=== PATIENT | male | born 1940 | race Caucasian/White ===

== ENCOUNTER 2021-11-30 01:38 | Emergency (ER) | payer MEDICARE, BC, SELFPAY ==
--- NOTE | ~2021-11-30 | CT_ITS ---
EXAMINATION: CT brain wo con DATE: 11/30/2021 02:09 INDICATION: Altered mental status. TECHNIQUE: Computed tomography (CT) of the head was performed without intravenous contrast. The mA wa s adjusted according to patient size. Iterative reconstruction technique was employed. The dose-lengt h product was 605.33 mGy-cm. COMPARISON: Head CT 11/14/2014 FINDINGS: There are scattered areas of low attenuation in the cerebral white matter and bilateral bas al ganglia. There is no intracranial hemorrhage, acute infarction, or abnormal intracranial mass lesi on. The ventricles are normal in size. There are likely changes of ocular lens replacement surgeries. There is mild mucosal thickening in the ethmoid sinuses. The mastoid air cells are normal. IMPRESSION: 1. Worsened mild nonspecific cerebral white matter disease and disease of the bilateral basal ganglia , which likely represents chronic small vessel ischemic disease. Reviewed, dictated and finalized at location A. IMPRESSION: 1. Worsened mild nonspecific cerebral white matter disease and disease of the b ilateral basal ganglia, which likely represents chronic small vessel ischemic d isease.
[2021-11-30 01:40] VITALS: BP 172/97; PULSE 83; RESP 19; TEMP 36.4; O2SAT 96
--- NOTE | 2021-11-30 01:50 | ECG_ITS ---
Measurements Intervals [place] Rate: 79 P: 51 NE: 182 QRS: 20 QRSD: 93 T: 8 QT: 387 QTc: 444 Interpretive Statements SINUS RHYTHM NORMAL ECG Electronically Signed On 11-30-2021 13:57:46 CDT by Ramiro Escoto M.D.
--- NOTE | 2021-11-30 01:54 | PC.NURSE ---
EDP at bedside, pt able to tell EDP date and month. Seizure precautions initiated.
[2021-11-30 01:57] VITALS: BP 166/87
--- NOTE | 2021-11-30 02:01 | ED.AMS ---
HPI - Altered Mental Status General Chief Complaint: Altered Mental Status Stated Complaint: ALTERED LOC Time Seen by Provider: 11/30/21 01:50 History of Present Illness HPI narrative: Patient is an 81-year-old male brought in by EMS due to he was difficult to wake up according to . EMS states that he was able to stand up and walk when they arrived. Upon arrival to the emergency room he is alert and oriented x3, does not know why his called EMS, states that he was sleeping. Patient has no complaints at this time I feel fine . Denies any headache, dizziness, speech or visual disturbance, focal weakness or numbness, unsteady gait, chest pain, shortness of breath, abdominal pain, nausea, vomiting, diarrhea, urinary symptoms, fever or chills. Related Data Home Medications Medication Instructions Recorded Confirmed aspirin 81 mg tablet,delayed 81 mg PO DAILY 01/01/20 07/14/21 release dutasteride 0.5 mg capsule 0.5 mg PO DAILY 01/01/20 07/14/21 (Avodart) lorazepam 0.5 mg tablet 0.5 mg PO DAILY PRN 01/01/20 07/14/21 Allergies Allergy/AdvReac Type Severity Reaction Status Date / Time fluoxetine Allergy Mild ELEVATED BP Verified 11/30/21 01:47 Penicillins Allergy Mild RASH Verified 11/30/21 01:47 Sulfa (Sulfonamide Allergy Mild RASH Verified 11/30/21 01:47 Antibiotics) citric acid Allergy Unknown Unknown Verified 11/30/21 01:47 losartan Allergy Unknown side Verified 11/30/21 01:47 effects strawberry Allergy Unknown Rash Verified 11/30/21 01:47 sulfanilamide Allergy Unknown Unknown Verified 11/30/21 01:47 lisinopril AdvReac Mild UNKNOWN Verified 11/30/21 01:47 Review of Systems Review of Systems: All systems reviewed & are unremarkable except as noted in HPI and below Constitutional: Constitutional: Denies body ache(s), Denies chills, Denies excessive sweating, Denies fatigue, Denies fever(s), Denies headache(s), Denies lethargy, Denies malaise, Denies weakness and Denies weight loss Eyes: Eyes: Denies blurry vision, Denies change in vision and Denies loss of vision ENT: Denies dizziness, Denies ear discharge, Denies headache(s), Denies lip swelling, Denies epistaxis, Denies nasal congestion, Denies neck pain, Denies throat swelling and Denies tongue swelling Cardiovascular: Cardiovascular: Denies chest pain, Denies chest pain at rest, Denies chest pain with activity, Denies diaphoresis, Denies rapid heart rate, Denies edema, Denies irregular heart rhythm, Denies lightheadedness, Denies palpitations, Denies dyspnea and Denies dyspnea on exertion Respiratory: Respiratory: Denies chest congestion, Denies cough, Denies hemoptysis, Denies dyspnea and Denies dyspnea on exertion Gastrointestinal: Gastrointestinal: Denies abdominal pain, Denies melena, Denies hematochezia, Denies diarrhea, Denies nausea, Denies vomiting and Denies hematemesis Musculoskeletal: Musculoskeletal: Denies abnormal gait, Denies deformity, Denies joint swelling, Denies limited range of motion, Denies neck pain and Denies numbness Neurologic: Denies Abnormal speech present, Denies abnormal gait, Denies confusion, Denies dizziness, Denies headache(s), Denies focal weakness, Denies loss of vision, Denies numbness, Denies Other visual disturbances, Denies Sensory deficit (Neuro) and Denies weakness Psychiatric: Psychiatric: Denies confusion, Denies depression, Denies auditory hallucinations, Denies homicidal ideation and Denies suicidal ideation Endocrine: Endocrine: Denies cold intolerance, Denies excessive sweating, Denies fatigue, Denies heat intolerance and Denies palpitations Hematologic/Lymphatic: Hematologic/Lymphatic: Denies easy bleeding and Denies easy bruising Allergic/Immunologic: Allergic/Immunologic: Denies lip swelling, Denies throat swelling and Denies tongue swelling PMFSH Family History Family History Father Hypertension Family history of diabetes mellitus in first de
[2021-11-30 02:21] LABS: Add Urine Microscopic? YES; Appearance Urine Clear (Clear); Basophils Absolute Auto 0.1 K/mm3 (0.0-0.1); Basophils Percent Auto 0.8 % (0.2-1.2); Bilirubin Urine Negative (Negative); Blood Urine Trace-lysed (Negative); Color Urine Yellow (Yellow); Eosinophils Absolute Auto 0.2 K/mm3 (0-0.3); Eosinophils Percent Auto 3.2 % (0-4.4); Glucose Urine UA Negative (Negative); Hematocrit 40.9 % (42.0-52.0); Hemoglobin 13.6 g/dL (14.0-18.0); Immature Granulocyte Percent A 1.4 % (0-0.5); Ketones Urine Negative (Negative); Leukocyte Esterase Ur Negative LEU/UL (Negative); Lymphocytes Absolute Auto 2.21 K/mm3 (0.9-3.2); Lymphocytes Percent Auto 30.5 % (18.3-44.2); Mean Corpuscular HGB Conc 33.3 g/dl (32-36); Mean Corpuscular Hemoglobin 28.9 pg (26-34); Mean Corpuscular Volume 86.8 fl (80-100); Mean Platelet Volume 8.7 fl (7.4-10.4); Monocytes Absolute Auto 0.4 K/mm3 (0.1-0.6); Monocytes Percent Auto 5.4 % (2.6-8.5); Neutrophils Absolute Auto 4.3 K/mm3 (1.3-6.7); Neutrophils Percent Auto 58.7 % (45.5-73.1); Nitrate Urine Negative (Negative); Platelet Count Result 166 k/mm3 (150-375); Protein Urine 1+ mg/dL (Negative); Red Blood Count 4.71 M/mm3 (4.6-6.20); Red Cell Distribution Width 12.2 % (11.5-14.5); Specific Grav Ur 1.025 (1.001-1.035); Urobilinogen Urine 0.2 mg/dL (<2.0); White Blood Count 7.3 K/mm3 (4.5-10.0); pH Urine 5.5 (5.0-9.0)
[2021-11-30 02:24] LABS: Mucus Urine Rare /lpf; RBC Urine 0-2 /hpf (0-2)
--- NOTE | 2021-11-30 02:29 | PC.NURSE ---
Spouse at bedside reports she was woken up by pt shaking, with no verbal response, and eyes half open . Reports it sounded like he was snoring. Unsure of how long this episode lasted.
[2021-11-30 02:31] LABS: Alanine Aminotransferase 26 U/L (6-50); Alkaline Phosphatase 48 U/L (38-126); Anion Gap 8 mmol/L (8-16); Aspartate Amino Transferase 32 U/L (17-59); Bilirubin,Total 0.4 mg/dL (0.2-1.3); Blood Urea Nitrogen 16 mg/dL (9-20); Calcium 9.2 mg/dL (8.4-10.2); Carbon Dioxide 26 mmol/L (22-30); Chloride 104 mmol/L (98-107); Estimated CRCL calculation 57 ml/min; Estimated Glomerular Filt Rate > 60; Glucose 143 mg/dL (65-110); Potassium 3.8 mmol/L (3.4-5.0); Sodium 138 mmol/L (137-145)
[2021-11-30 02:42] LABS: Troponin I < 0.012 ng/mL (0.000-0.034)
[2021-11-30 03:07] VITALS: BP 161/90; PULSE 77; RESP 15; O2SAT 96
== END 2021-11-30 03:09 | disposition home or self-care (01) ==
PROVIDERS: Emergency Provider Emergency Medicine; PCP Family Medicine
DX: R41.82 Altered mental status, unspecified (principal); Z87.891 Personal history of nicotine dependence; Z79.82 Long term (current) use of aspirin
CPT/HCPCS: 36415; 70450; 80053; 81001; 84484; 85025; 93005; 99284

== ENCOUNTER 2021-12-18 10:40 | Outpatient (CLI) | payer MEDICARE, BC, SELFPAY ==
--- NOTE | 2021-12-18 12:49 | P.NEURO_ITS ---
Neurology EEG Report General Information Date of Study: 12/18/21 TEST Routine EEG DIAGNOSIS Altered mental status CONDITION OF RECORDING Awake, drowsy EEG NUMBER [id number] CLINICAL HISTORY Patient reports about 2 weeks ago he had an episode of waking up shaking uncontrollably. EEG DESCRIPTION During the awake state with eyes closed the background consists of 10 Hz posterior dominant rhythm which attenuates appropriately with eye opening. The r ecording is continuous. There is a well developed anterior-posterior gradient. No significant asymmetries of background activities are noted. With drowsiness there is was waxing and waning of the dominant rhythm with eventual replacement by a mixture of beta, alpha, and theta activity. Patient did not achieve stage II sleep. There are no epileptiform discharges or seizures noted during this recording. Photic stimulation was performed and did not elicit any seizures or epileptiform features. IMPRESSION This is a normal routine EEG recorded in awake and drowsy states. There are no electrographic seizures identified, nor are there any epileptiform discharges. Please note that a normal EEG cannot exclude a seizure disorder. Clinical correlation is recommended.
== END 2021-12-18 10:41 | disposition home or self-care (01) ==
LOC: ANHNEURO 10:41
PROVIDERS: PCP Family Medicine; Visit Provider Physician Assistant
DX: R41.82 Altered mental status, unspecified (principal)
CPT/HCPCS: 95816

== ENCOUNTER 2022-01-07 10:28 | Outpatient (CLI) | payer MEDICARE, BC, SELFPAY ==
--- NOTE | ~2022-01-07 | MR_ITS ---
EXAMINATION: MR brain/brain stem wo con DATE: 01/07/2022 11:08 INDICATION: Seizure. TECHNIQUE: Magnetic resonance imaging (MRI) of the brain and brainstem was performed without intraven ous contrast. COMPARISON: Head CT 11/30/2021 FINDINGS: There are scattered areas of nonspecific increased T2-weighted signal intensity in the cere bral white matter and aranza. There is a small old cortical infarct in posterior right frontal lobe. Th ere is no intracranial hemorrhage, acute infarction, or abnormal intracranial mass lesion. The ventri cles are normal in size. There is mild mucosal thickening in the ethmoid sinuses. There are likely ch anges of ocular lens replacement surgeries. The mastoid air cells are normal. IMPRESSION: 1. 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 2. Mild nonspecific cerebral white matter disease and pontine disease, which likely represents chroni c small vessel ischemic disease. Reviewed, dictated and finalized at location A. IMPRESSION: 1. 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 2. Mild nonspecific cerebral white matter disease and pontine disease, which marilyn thornton represents chronic small vessel ischemic disease.
== END 2022-01-07 10:29 | disposition home or self-care (01) ==
PROVIDERS: PCP Family Medicine; Visit Provider Physician Assistant
DX: R56.9 Unspecified convulsions (principal); R41.82 Altered mental status, unspecified; Z86.73 Personal history of transient ischemic attack (TIA), and cerebral infarction without residual deficits; R90.82 White matter disease, unspecified
CPT/HCPCS: 70551

== ENCOUNTER 2022-04-25 00:35 | Emergency (ER) | payer MEDICARE, BC, SELFPAY ==
[2022-04-25] VITALS (13 sets, daily range): BP systolic 162–183; BP diastolic 75–84; PULSE 52–91; RESP 12–24; TEMP 37.1; O2SAT 96–100
--- NOTE | ~2022-04-25 | CT_ITS ---
EXAMINATION: CT brain wo con DATE: 04/25/2022 02:49 INDICATION: seizure, hx TIA . TECHNIQUE: Computed tomography (CT) of the head was performed without intravenous contrast. The mA wa s adjusted according to patient size. Iterative reconstruction technique was employed. The dose-lengt h product was 605.33 mGy-cm. COMPARISON: 11/30/2021. FINDINGS: No acute intracranial hemorrhage or extra-axial fluid collection. No hydrocephalus, mass, or herniation. No acute ischemic infarct. Unremarkable dural venous sinus attenuation. No acute osseous abnormality. The aerated spaces are clear. Mild atrophy and chronic white matter change. Atherosclerotic intracranial calcification. Old right b adele ganglia and periventricular lacunar infarcts. Bilateral lens replacements. IMPRESSION: No acute intracranial process. Reviewed, dictated and finalized at location K. [facility]
--- NOTE | 2022-04-25 01:46 | ED.GENADULT ---
HPI - General Adult General Chief complaint: Seizure Stated complaint: POSSIBLE SEIZURE Time Seen by Provider: 04/25/22 01:15 History of Present Illness HPI narrative: 82-year-old male presenting the emergency department for evaluation of seizure-like activity that occurred while sleeping. Patient reports that he went to sleep at approximately 1130 and he was feeling fine when going to sleep. Patient denies anything abnormal about the day. states after the patient was asleep for approximately 30 minutes he began doing some lipsmacking and had a rigid right arm. His states that the patient was unresponsive for approximately 30 minutes. Patient did have a prior episode of this back in November where he did have violent shaking of his upper extremities but states he did not had any upper extremity shaking during this episode today. Patient did bite his tongue and left today. Patient did have follow-up with neurology for an EEG and MRI. EEG in November showed no evidence of epileptic activity. Patient was not started on any antiepileptic medications. Patient reports that when he woke up in the ambulance he did not feel confused. Patient is back to his normal baseline at this time and denies any complaints other than feeling tired. Related Data Home Medications Medication Instructions Recorded Confirmed aspirin 81 mg tablet,delayed 81 mg PO DAILY 01/01/20 01/13/22 release dutasteride 0.5 mg capsule 0.5 mg PO DAILY 01/01/20 01/13/22 (Avodart) lorazepam 0.5 mg tablet 0.5 mg PO BID PRN 12/03/21 01/13/22 Allergies Allergy/AdvReac Type Severity Reaction Status Date / Time fluoxetine Allergy Mild ELEVATED BP Verified 01/13/22 13:00 Penicillins Allergy Mild RASH Verified 01/13/22 13:00 Sulfa (Sulfonamide Allergy Mild RASH Verified 01/13/22 13:00 Antibiotics) citric acid Allergy Unknown Unknown Verified 01/13/22 13:00 losartan Allergy Unknown side Verified 01/13/22 13:00 effects strawberry Allergy Unknown Rash Verified 01/13/22 13:00 sulfanilamide Allergy Unknown Unknown Verified 01/13/22 13:00 lisinopril AdvReac Mild UNKNOWN Verified 01/13/22 13:00 Review of Systems Review of Systems: CONSTITUTIONAL: Denies fever, chills, or sweats. EYES: Denies visual changes, redness, or discharge. ENT: See HPI CARDIOVASCULAR: Denies chest pain, palpitations, or edema. RESPIRATORY: Denies cough or dyspnea. GASTROINTESTINAL: Denies abdominal pain, nausea, vomiting, or diarrhea. GENITOURINARY: Denies dysuria or hematuria. SKIN: Denies rash or itching. MUSCULOSKELETAL: Denies back pain, joint pain, or myalgia. NEUROLOGIC: Possible seizure-like activity [facility] Family History Family History Father Hypertension Family history of diabetes mellitus in first degree relative Family history of coronary artery disease Mother Family history of chronic obstructive pulmonary disease Sibling Family history of malignant neoplasm Family history of lymphoma Family history of malignant neoplasm of breast in first degree relative Social History Social History Smoking packs per day: 1 Smoking cigarettes per day: 20.0 Years smoked: 43 Smoking pack-years: 43.00 Smoking status: Former smoker Tobacco type: cigarettes and pipe Second hand tobacco smoke exposure: Yes Smoking end date: 05/02/74 Alcohol intake: never Substance use: never Substance use type: does not use Gender identity (if verbalized by the patient): Male Exam Narrative: APPEARANCE: Well appearing, no pain, no distress, well-nourished. HEAD: normocephalic, atraumatic. EYES: PERRLA/EOMI, conjunctivae clear. NOSE: Normal no drainage EARS:TMS clear with good light reflex. THROAT: Pharynx clear, no exudate. NECK: Supple. No adenopathy, no masses. RESPIRATORY: Airway patent, respirations nonlabored. Clear to auscultation bilaterally, no
[2022-04-25] MEDS: CALCIUM CARBONATE (TUMS) 500 MG (200 MG ELEMENTAL) 600 MG PO (01:59)
--- NOTE | 2022-04-25 03:30 | PC.NURSE ---
Assumed care of patient at this time. Report received from NAS Alvarado.
[2022-04-25 03:55] LABS: Basophils Absolute Auto 0.1 K/mm3 (0.0-0.1); Basophils Percent Auto 0.8 % (0.2-1.2); Eosinophils Absolute Auto 0.1 K/mm3 (0-0.3); Eosinophils Percent Auto 1.4 % (0-4.4); Hematocrit 40.7 % (42.0-52.0); Hemoglobin 13.8 g/dL (14.0-18.0); Immature Granulocyte Absolute 0.04 K/mm3 (0.00-0.031); Immature Granulocyte Percent A 0.4 % (0-0.5); Lymphocytes Absolute Auto 1.39 K/mm3 (0.9-3.2); Lymphocytes Percent Auto 15.1 % (18.3-44.2); Mean Corpuscular HGB Conc 33.9 g/dl (32-36); Mean Corpuscular Hemoglobin 28.4 pg (26-34); Mean Corpuscular Volume 83.7 fl (80-100); Mean Platelet Volume 9.1 fl (7.4-10.4); Monocytes Absolute Auto 0.5 K/mm3 (0.1-0.6); Monocytes Percent Auto 5.2 % (2.6-8.5); Neutrophils Absolute Auto 7.1 K/mm3 (1.3-6.7); Neutrophils Percent Auto 77.1 % (45.5-73.1); Platelet Count Result 163 k/mm3 (150-375); Red Blood Count 4.86 M/mm3 (4.6-6.20); Red Cell Distribution Width 12.3 % (11.5-14.5); White Blood Count 9.2 K/mm3 (4.5-10.0)
[2022-04-25 04:04] LABS: Add Urine Microscopic? YES; Appearance Urine Clear (Clear); Bilirubin Urine Negative (Negative); Blood Urine Negative (Negative); Color Urine Light Yellow (Yellow); Glucose Urine UA Negative (Negative); Ketones Urine Negative (Negative); Leukocyte Esterase Ur Negative LEU/UL (Negative); Nitrate Urine Negative (Negative); Protein Urine Trace mg/dL (Negative); Urobilinogen Urine 0.2 mg/dL (<2.0); pH Urine 6.5 (5.0-9.0)
[2022-04-25 04:05] LABS: Alanine Aminotransferase 33 U/L (6-50); Albumin Level 4.1 g/dL (3.5-5.1); Alkaline Phosphatase 54 U/L (38-126); Anion Gap 7 mmol/L (8-16); Aspartate Amino Transferase 40 U/L (17-59); Bilirubin,Total 0.3 mg/dL (0.2-1.3); Blood Urea Nitrogen 18 mg/dL (9-20); Calcium 9.8 mg/dL (8.4-10.2); Carbon Dioxide 27 mmol/L (22-30); Chloride 105 mmol/L (98-107); Estimated CRCL calculation 58 ml/min; Estimated Glomerular Filt Rate > 60; Glucose 106 mg/dL (65-110); Potassium 3.9 mmol/L (3.4-5.0); Sodium 139 mmol/L (137-145)
[2022-04-25 04:14] LABS: Mucus Urine Rare /lpf; RBC Urine 0-2 /hpf (0-2)
[2022-04-25 04:30] LABS: Influenza A QL RT-PCR Negative (Negative); Influenza B QL RT-PCR Negative (Negative); RSV RNA, RT-PCR Negative (Negative); SARS-CoV-2 RNA PCR Negative
[2022-04-25] MEDS: levETIRAcetam 500 MG TABLET PO (06:14)
== END 2022-04-26 07:54 | disposition home or self-care (01) ==
PROVIDERS: Emergency Provider Emergency Medicine; PCP Family Medicine
DX: R56.9 Unspecified convulsions (principal); Z79.82 Long term (current) use of aspirin; Z87.891 Personal history of nicotine dependence; Z79.899 Other long term (current) drug therapy; Z20.822 Contact with and (suspected) exposure to COVID-19
CPT/HCPCS: 36415; 70450; 80053; 81001; 84443; 85025; 87637; 99284; A9270

== ENCOUNTER 2022-07-08 08:39 | Outpatient (CLI) | payer MEDICARE, BC, SELFPAY ==
[2022-07-08 09:08] LABS: Basophils Absolute Auto 0.1 K/mm3 (0.0-0.1); Basophils Percent Auto 0.9 % (0.2-1.2); Eosinophils Absolute Auto 0.3 K/mm3 (0-0.3); Eosinophils Percent Auto 4.6 % (0-4.4); Hematocrit 44.8 % (42.0-52.0); Immature Granulocyte Absolute 0.02 K/mm3 (0.00-0.031); Immature Granulocyte Percent A 0.4 % (0-0.5); Lymphocytes Percent Auto 33.3 % (18.3-44.2); Mean Corpuscular HGB Conc 33.5 g/dl (32-36); Mean Corpuscular Volume 86.7 fl (80-100); Mean Platelet Volume 8.9 fl (7.4-10.4); Monocytes Absolute Auto 0.4 K/mm3 (0.1-0.6); Monocytes Percent Auto 7.2 % (2.6-8.5); Neutrophils Absolute Auto 3.1 K/mm3 (1.3-6.7); Neutrophils Percent Auto 53.6 % (45.5-73.1); Platelet Count Result 158 k/mm3 (150-375); Red Blood Count 5.17 M/mm3 (4.6-6.20); Red Cell Distribution Width 12.5 % (11.5-14.5); White Blood Count 5.7 K/mm3 (4.5-10.0)
[2022-07-08 09:23] LABS: Alanine Aminotransferase 33 U/L (6-50); Albumin Level 4.4 g/dL (3.5-5.1); Alkaline Phosphatase 56 U/L (38-126); Anion Gap 5 mmol/L (8-16); Aspartate Amino Transferase 36 U/L (17-59); Bilirubin,Total 0.6 mg/dL (0.2-1.3); Blood Urea Nitrogen 16 mg/dL (9-20); Calcium 9.1 mg/dL (8.4-10.2); Carbon Dioxide 28 mmol/L (22-30); Chloride 106 mmol/L (98-107); Cholesterol 235 mg/dL (0-200); Estimated Glomerular Filt Rate > 60; Glucose 93 mg/dL (65-110); HDL Direct 41 mg/dL; Sodium 139 mmol/L (137-145); Triglycerides 354 mg/dL (<150)
[2022-07-08 09:23] LABS: Appearance Urine Clear (Clear); Bacteria Urine None Seen /hpf; Bilirubin Urine Negative (Negative); Blood Urine Negative (Negative); Color Urine Yellow (Yellow); Glucose Urine UA Negative (Negative); Ketones Urine Negative (Negative); Leukocyte Esterase Ur 1+ LEU/UL (NEGATIVE); Need Manual Microscopic Reviewed; Nitrate Urine Negative (Negative); Non Pathogenic Casts 0-2; Protein Urine 1+ mg/dL (Negative); RBC Urine 0-2 /hpf (0-2); Specific Grav Ur 1.013 (1.001-1.035); Squamous Epithelial Cell Urine None seen /hpf (Few); Urobilinogen Urine 0.2 mg/dL (<2.0); WBC Urine 0-5 /hpf (0-3); pH Urine 6.5 (5.0-9.0)
[2022-07-08 09:34] LABS: LDL Cholesterol Direct 96 mg/dL
[2022-07-08 10:12] LABS: Add Urine Microscopic? YES
[2022-07-08 10:33] LABS: Folic Acid > 20.0 ng/mL (2.76->20)
== END 2022-07-08 08:40 | disposition home or self-care (01) ==
LOC: ANHLAB 08:42
PROVIDERS: PCP Family Medicine; Visit Provider Physician Assistant
DX: I10 Essential (primary) hypertension (principal); E53.8 Deficiency of other specified B group vitamins; E78.2 Mixed hyperlipidemia; N40.0 Benign prostatic hyperplasia without lower urinary tract symptoms; K21.9 Gastro-esophageal reflux disease without esophagitis; G45.9 Transient cerebral ischemic attack, unspecified
CPT/HCPCS: 36415; 80053; 80061; 81001; 82607; 82746; 84443; 85025

== ENCOUNTER 2023-01-27 07:45 | Outpatient (CLI) | payer MEDICARE, BC, SELFPAY ==
[2023-01-27 08:21] LABS: Hematocrit 43.1 % (42.0-52.0); Hemoglobin 14.4 g/dL (14.0-18.0); Mean Corpuscular HGB Conc 33.4 g/dl (32-36); Mean Corpuscular Hemoglobin 29.3 pg (26-34); Mean Corpuscular Volume 87.6 fl (80-100); Mean Platelet Volume 9.1 fl (7.4-10.4); Platelet Count Result 146 k/mm3 (150-375); Red Blood Count 4.92 M/mm3 (4.6-6.20); Red Cell Distribution Width 12.1 % (11.5-14.5); White Blood Count 5.8 K/mm3 (4.5-10.0)
[2023-01-27 08:25] LABS: Appearance Urine Clear (Clear); Bacteria Urine None Seen /hpf; Bilirubin Urine Negative (Negative); Blood Urine Negative (Negative); Color Urine Yellow (Yellow); Glucose Urine UA Negative (Negative); Ketones Urine Negative (Negative); Leukocyte Esterase Ur Trace LEU/UL (NEGATIVE); Nitrate Urine Negative (Negative); Non Pathogenic Casts 0-2; Protein Urine Negative (Negative); RBC Urine 0-2 /hpf (0-2); Specific Grav Ur 1.013 (1.001-1.035); Squamous Epithelial Cell Urine None seen /hpf (Few); Urobilinogen Urine 0.2 mg/dL (<2.0); WBC Urine 0-5 /hpf (0-3)
[2023-01-27 08:38] LABS: Add Urine Microscopic? YES
[2023-01-27 09:36] LABS: Hemoglobin A1C 5.3 % (<5.7)
[2023-01-27 09:44] LABS: Alanine Aminotransferase 31 U/L (6-50); Albumin Level 4.3 g/dL (3.5-5.1); Alkaline Phosphatase 42 U/L (38-126); Anion Gap 6 mmol/L (8-16); Aspartate Amino Transferase 37 U/L (17-59); Bilirubin,Total 0.7 mg/dL (0.2-1.3); Blood Urea Nitrogen 18 mg/dL (9-20); Calcium 9.3 mg/dL (8.4-10.2); Carbon Dioxide 28 mmol/L (22-30); Chloride 104 mmol/L (98-107); Cholesterol 191 mg/dL (0-200); Estimated Glomerular Filt Rate > 60; Glucose 93 mg/dL (65-110); HDL Direct 39 mg/dL; Potassium 3.9 mmol/L (3.4-5.0); Sodium 138 mmol/L (137-145); Triglycerides 358 mg/dL (<150)
[2023-01-27 10:00] LABS: LDL Cholesterol Direct 64 mg/dL
[2023-01-27 10:57] LABS: Folic Acid > 20.0 ng/mL (2.76->20)
== END 2023-01-27 07:46 | disposition home or self-care (01) ==
LOC: ANHLAB 07:47
PROVIDERS: PCP Family Medicine; Visit Provider Family Medicine
DX: E53.8 Deficiency of other specified B group vitamins (principal); G45.9 Transient cerebral ischemic attack, unspecified; I10 Essential (primary) hypertension; E78.2 Mixed hyperlipidemia; R53.83 Other fatigue; R73.01 Impaired fasting glucose
CPT/HCPCS: 36415; 80053; 80061; 81001; 82607; 82746; 83036; 84443; 85027

== ENCOUNTER 2023-03-20 13:50 | Observation (INO) | payer MEDICARE, BC, SELFPAY ==
[2023-03-20] VITALS (25 sets, daily range): BP systolic 108–156; BP diastolic 46–86; PULSE 57–91; RESP 13–18; TEMP 36.4; O2SAT 97–100; BMI 21.2
--- NOTE | ~2023-03-20 | CT_ITS ---
EXAMINATION: CT brain wo con DATE: 03/20/2023 18:03 INDICATION: seizure . TECHNIQUE: Computed tomography (CT) of the head was performed without intravenous contrast. The mA wa s adjusted according to patient size. Iterative reconstruction technique was employed. The dose-lengt h product was 605.33 mGy-cm. COMPARISON: 04/25/2022. FINDINGS: No acute intracranial hemorrhage or extra-axial fluid collection. No hydrocephalus, mass, or herniation. No acute ischemic infarct. Unremarkable dural venous sinus attenuation. No acute osseous abnormality. The aerated spaces are clear. Mild atrophy and chronic white matter change. Atherosclerotic intracranial calcification. Old right b adele ganglia and periventricular lacunar infarcts. Bilateral lens replacements. IMPRESSION: No acute intracranial process. Reviewed, dictated and finalized at location K. [employer]
--- NOTE | ~2023-03-20 | MR_ITS ---
EXAMINATION: MR brain/brain stem wo con DATE: 03/21/2023 15:35 INDICATION: New onset seizure TECHNIQUE: Magnetic resonance imaging (MRI) of the brain and brainstem was performed without intraven ous contrast. Sequences included sagittal and axial T1-weighted SE, axial diffusion-weighted FS SE, a xial T2*-weighted GRE, axial T2-weighted FLAIR, and axial T2-weighted FSE. Apparent diffusion coeffic ient (ADC) maps were created. COMPARISON: 01/07/2022 FINDINGS: There are no areas of restricted diffusion to suggest acute infarction. No intracranial hemorrhage or abnormal intracranial mass lesion. No significant interval change in scattered areas of nonspecific increased T2-weighted signal intensity in the cerebral white matter, predominantly involving the deep and periventricular white matter which is within normal limits for age. There are no intraparenchyma l signal abnormalities seen on the other pulse sequences. The ventricles are symmetric and normal in size. There are no abnormal extra-axial fluid collections. Flow voids are seen in the cerebral arteri es on the T2-weighted sequences consistent with their expected patency. Changes of bilateral intraocu lar lens replacement. Visualized orbits and soft tissues are unremarkable. Mucosal thickening in the bilateral ethmoid sinuses most prominent posteriorly on the left. IMPRESSION: 1. 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 Reviewed, dictated and finalized at location [facility]. [facility] IMPRESSION: 1. Mild scattered nonspecific cerebral white matter T2 hyperintensity which is within normal limits for age and likely sequela of chronic small vessel ischemi c disease.
--- NOTE | 2023-03-20 13:55 | ECG_ITS ---
Measurements Intervals [place] Rate: 84 P: 51 OR: 164 QRS: 44 QRSD: 94 T: 51 QT: 372 QTc: 440 Interpretive Statements SINUS RHYTHM BASELINE ARTIFACT- I, II, AVR NORMAL ECG COMPARED TO ECG 11/30/2021 01:59:32 NO SIGNIFICANT CHANGES Electronically Signed On 03-20-2023 14:31:59 HOSPICE CARE TRANSITIONS COORDINATOR by Ramin Miranda D.O.
--- NOTE | 2023-03-20 13:59 | ED.AMS ---
HPI - Altered Mental Status General Chief Complaint: Altered Mental Status Stated Complaint: ams- combative Time Seen by Provider: 03/20/23 13:56 Source: patient, family ( and son) and EMS (heard phone report/arrival notification) Mode of arrival: EMS Limitations: no limitations History of Present Illness HPI narrative: reports she heard what sounded like patient gurgling in the adjacent room. When she came into the living room, he was partially on and partially off the couch. No seizure-like activity witnessed but his eyes were superiorly deviated and he was not responding to verbal stimuli. His arms were limp when she lifted them up and let them fall. She called 911 and patient's son who was only 5 minutes away. He arrived to find similar scenario. Patient had been incontinent of bladder and had bit his lower right lip. Patient remained unresponsive for several minutes and then, upon awakening, was confused for approximately 15-20 minutes after. It is reported by patient and family that he appears back to baseline at present. Patient has no memory of this occurring. He remembers laying down on the couch but then remembers waking up on the ambulance confused. By report, at least 2 similar episodes have happened previously. It was felt that perhaps patient was having seizures but he underwent an EEG which was by report normal, not showing any seizure activity. Thus, patient not placed on an anti-epileptic drug. 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 He has also reportedly had several TIAs. No family history of seizures. His previous 2 episodes occurred also while he was sleeping and, for his obstructive sleep apnea, he has been placed on CPAP. Previously saw a neurologist at [facility] but does not follow with anyone currently. He is on lorazepam which had been taken TID, then switched to BID, and then back to BID but this dose has been stable for months. This occurs under the direction of mariah Ruiz at [facility]. No changes in sleep, denies alcohol, and no medication changes. He states he works out and did increase his repetitions recently. Patient states he feels a little nauseated and has a bit of a headache (which he believes are due to allergies) but no other symptoms. He has otherwise been well and at his baseline recently. Denies chest pain, abdominal pain, BRENNA, cough, diarrhea. diaphoresis. He ate breakfast and lunch today. Related Data Home Medications Medication Instructions Recorded Confirmed aspirin 81 mg tablet,delayed 81 mg PO DAILY 01/01/20 03/20/23 release dutasteride 0.5 mg capsule 0.5 mg PO DAILY 01/01/20 03/20/23 (Avodart) lorazepam 0.5 mg tablet 0.5 mg PO TID 12/03/21 03/20/23 clonidine HCl 0.1 mg PO 1700 03/20/23 03/20/23 Allergies Allergy/AdvReac Type Severity Reaction Status Date / Time fluoxetine Allergy Mild ELEVATED BP Verified 03/20/23 21:06 Penicillins Allergy Mild RASH Verified 03/20/23 21:06 Sulfa (Sulfonamide Allergy Mild RASH Verified 03/20/23 21:06 Antibiotics) citric acid Allergy Unknown Unknown Verified 03/20/23 21:06 losartan Allergy Unknown side Verified 03/20/23 21:06 effects strawberry Allergy Unknown Rash Verified 03/20/23 21:06 sulfanilamide Allergy Unknown Unknown Verified 03/20/23 21:06 lisinopril AdvReac Mild UNKNOWN Verified 03/20/23 21:06 [facility] Past Medical History Medical History (Updated 03/21/23 @ 08:26 by Le Nloen MD) B12 deficiency Benign prostatic hyperplasia without lower urinary tract symptoms Essential hypertension Gastroesophageal reflux disease without esophagitis HSV-2 infection Lumbago with sciatica, right side Mixed hyperlipidemia FILOMENA (obstructive sleep apnea) uses CPAP Transient cerebral ischemic attack, unspecified Surgical History Surgical History History of tonsillectomy Family History Family History (Reviewed 03/20/23
[2023-03-20 14:09] LABS: Basophils Absolute Auto 0.1 K/mm3 (0.0-0.1); Basophils Percent Auto 1.2 % (0.2-1.2); Eosinophils Absolute Auto 0.3 K/mm3 (0-0.3); Eosinophils Percent Auto 4.6 % (0-4.4); Hematocrit 42.7 % (42.0-52.0); Hemoglobin 13.9 g/dL (14.0-18.0); Immature Granulocyte Absolute 0.03 K/mm3 (0.00-0.031); Immature Granulocyte Percent A 0.4 % (0-0.5); Lymphocytes Absolute Auto 3.18 K/mm3 (0.9-3.2); Lymphocytes Percent Auto 43.1 % (18.3-44.2); Mean Corpuscular HGB Conc 32.6 g/dl (32-36); Mean Corpuscular Hemoglobin 28.9 pg (26-34); Mean Corpuscular Volume 88.8 fl (80-100); Mean Platelet Volume 9.4 fl (7.4-10.4); Monocytes Absolute Auto 0.5 K/mm3 (0.1-0.6); Monocytes Percent Auto 6.1 % (2.6-8.5); Neutrophils Absolute Auto 3.3 K/mm3 (1.3-6.7); Neutrophils Percent Auto 44.6 % (45.5-73.1); Platelet Count Result 168 k/mm3 (150-375); Red Blood Count 4.81 M/mm3 (4.6-6.20); Red Cell Distribution Width 12.3 % (11.5-14.5); White Blood Count 7.4 K/mm3 (4.5-10.0)
[2023-03-20 14:16] LABS: INR 0.9; Prothrombin Time 12.3 Seconds (11.1-14.7)
[2023-03-20 14:17] LABS: Partial Thromboplastin Time 24.1 SECONDS (22.3-36.8)
[2023-03-20 14:20] LABS: Alanine Aminotransferase 35 U/L (6-50); Albumin Level 4.4 g/dL (3.5-5.1); Alkaline Phosphatase 46 U/L (38-126); Anion Gap 14 mmol/L (8-16); Aspartate Amino Transferase 39 U/L (17-59); Bilirubin,Total 0.4 mg/dL (0.2-1.3); Blood Urea Nitrogen 17 mg/dL (9-20); Calcium 9.5 mg/dL (8.4-10.2); Carbon Dioxide 25 mmol/L (22-30); Chloride 101 mmol/L (98-107); Estimated CRCL calculation 49 ml/min; Estimated Glomerular Filt Rate > 60; Glucose 112 mg/dL (65-110); Potassium 3.9 mmol/L (3.4-5.0); Sodium 140 mmol/L (137-145)
[2023-03-20 14:21] LABS: Appearance Urine Cloudy (Clear); Bacteria Urine None Seen /hpf; Bilirubin Urine Negative (Negative); Blood Urine Negative (Negative); Color Urine Dark Yellow (Yellow); Glucose Urine UA Negative (Negative); Hyaline Casts Urine Present /lpf; Ketones Urine Trace mg/dL (Negative); Leukocyte Esterase Ur Trace LEU/UL (Negative); Need Manual Microscopic Reviewed; Nitrate Urine Negative (Negative); Protein Urine 2+ mg/dL (Negative); RBC Urine 0-2 /hpf (0-2); Specific Grav Ur 1.019 (1.001-1.035); Squamous Epithelial Cell Urine None seen /hpf (Few); Urobilinogen Urine 0.2 mg/dL (<2.0); WBC Urine 0-5 /hpf; pH Urine 5.5 (5.0-9.0)
[2023-03-20 14:25] LABS: Add Urine Microscopic? YES
[2023-03-20] MEDS: ONDANSETRON HCL ODT 4 MG TABLET PO (14:35)
[2023-03-20 17:13] LABS: Cholesterol 221 mg/dL (0-200); HDL Direct 34 mg/dL; Triglycerides 444 mg/dL (<150)
[2023-03-20 17:16] LABS: Hemoglobin A1C 5.4 % (<5.7)
[2023-03-20 17:23] LABS: LDL Cholesterol Direct 98 mg/dL
--- NOTE | 2023-03-20 19:07 | PM.IMHP ---
H&P: HPI History of Present Illness Date/Time: 03/20/23 19:07 Chief Complaint: Seizure Narrative: This is an 83-year-old male patient past history of hypertension, BPH and FILOMENA on CPAP who presents to the hospital via EMS after generalized tonic-clonic seizure at home a with postictal period and loss of urinary continence. Patient noted that he bit his lip during the seizure and that he was fighting with EMS during transport because he was convinced he had to get up off of the stretcher. Patient can remember the fight with EMS. Patient denies any headache or any other pain. He reports a prior history of a seizure about a year ago and a seizure versus TIA the year prior. He does not take any seizure medications. He takes very few medications. He is on clonidine once daily for blood pressure, lorazepam 3 times daily and a baby aspirin. He also takes Avodart for his prostate. Currently patient denies any active symptoms. He reports that he is ambulatory around his room standing up to urinate without any problems. He has no dizziness no nausea no vomiting. He has had no fever chills or prodromal illness. Neurology was consulted in the emergency department recommended Keppra 500 b.i.d. which was started by the emergency department. Neurology recommended admission for EEG tomorrow. Patient is very active he still lifts weights daily. He lives at home with his . Patient still drives but is aware he will not be able to drive for a while after the seizure. Review of Systems Review of Systems: All systems reviewed & are unremarkable except as noted in HPI and below PMFSH Past Medical History Medical History B12 deficiency Benign prostatic hyperplasia without lower urinary tract symptoms Essential hypertension Gastroesophageal reflux disease without esophagitis HSV-2 infection Lumbago with sciatica, right side Mixed hyperlipidemia FILOMENA (obstructive sleep apnea) Transient cerebral ischemic attack, unspecified Surgical History Surgical History History of tonsillectomy Family History Family History Father Hypertension Family history of diabetes mellitus in first degree relative Family history of coronary artery disease Mother Family history of chronic obstructive pulmonary disease Sibling Family history of malignant neoplasm Family history of lymphoma Family history of malignant neoplasm of breast in first degree relative Social History Social History Smoking packs per day: 1 Smoking cigarettes per day: 20.0 Years smoked: 18 Smoking pack-years: 18.00 Smoking status: Former smoker Tobacco type: cigarettes and pipe Second hand tobacco smoke exposure: Yes Smoking end date: 05/02/74 Alcohol intake: never Substance use: never Substance use type: does not use Lack of Transportation: No Lack of Food: Never True Current Housing: I Have Housing Concerned About Future Housing: No Difficulty Paying Gas/Electric Bills: No Difficulty Paying for Meds: No Currently Unemployed: No Education: Master's Degree or Higher Difficulty w/ Childcare or Family Care: No Living arrangements: with family Occupation/Education: retired Gender identity (if verbalized by the patient): Male Spiritual care concerns: No Meds Home Medications and Allergies Home Medications Medication Instructions Recorded Confirmed Type aspirin 81 mg tablet,delayed 81 mg PO DAILY 01/01/20 03/20/23 History release dutasteride 0.5 mg capsule 0.5 mg PO DAILY 01/01/20 03/20/23 History (Avodart) lorazepam 0.5 mg tablet 0.5 mg PO TID 12/03/21 03/20/23 History clonidine HCl 0.1 mg PO 1700 03/20/23 03/20/23 History Allergies Allergy/AdvReac Type Severity Reaction Status Date
--- NOTE | 2023-03-20 19:50 | ADMGEN ---
This patient, Michael Bolanos Jr., was admitted to [facility] Surg Room 333-01. Patient/family oriented to hospital policies and general routines including ID bracelet, bed and alarms, visiting hours, pain management, procedures, bathroom and other care routines, personal items, smoking policy, room service/diet, and visiting hours. Information on how to activate the Rapid Response Team has been discussed. Patient/Family are encouraged to report perceived risks to care and to ask questions if they do not understand what they are told or what they should do.
[2023-03-20] MEDS: levETIRAcetam 500 MG TABLET PO (21:12)
[2023-03-20] MEDS: LORazepam (*CRX) 0.5 MG TABLET PO (21:13)
[2023-03-21 05:43] VITALS: BP 127/55; PULSE 52; RESP 18; TEMP 37.1; O2SAT 98
[2023-03-21 07:30] VITALS: O2SAT 97
[2023-03-21 07:58] LABS: Basophils Absolute Auto 0.1 K/mm3 (0.0-0.1); Basophils Percent Auto 0.5 % (0.2-1.2); Eosinophils Absolute Auto 0.3 K/mm3 (0-0.3); Eosinophils Percent Auto 2.9 % (0-4.4); Hematocrit 41.6 % (42.0-52.0); Hemoglobin 13.3 g/dL (14.0-18.0); Immature Granulocyte Absolute 0.02 K/mm3 (0.00-0.031); Immature Granulocyte Percent A 0.2 % (0-0.5); Lymphocytes Absolute Auto 1.97 K/mm3 (0.9-3.2); Mean Corpuscular Hemoglobin 28.5 pg (26-34); Mean Corpuscular Volume 89.1 fl (80-100); Mean Platelet Volume 9.1 fl (7.4-10.4); Monocytes Absolute Auto 0.6 K/mm3 (0.1-0.6); Monocytes Percent Auto 6.1 % (2.6-8.5); Neutrophils Absolute Auto 6.5 K/mm3 (1.3-6.7); Neutrophils Percent Auto 69.3 % (45.5-73.1); Platelet Count Result 152 k/mm3 (150-375); Red Blood Count 4.67 M/mm3 (4.6-6.20); Red Cell Distribution Width 12.5 % (11.5-14.5); White Blood Count 9.4 K/mm3 (4.5-10.0)
[2023-03-21 08:16] LABS: Anion Gap 8 mmol/L (8-16); Blood Urea Nitrogen 14 mg/dL (9-20); Calcium 8.9 mg/dL (8.4-10.2); Carbon Dioxide 26 mmol/L (22-30); Chloride 103 mmol/L (98-107); Estimated CRCL calculation 53 ml/min; Estimated Glomerular Filt Rate > 60; Glucose 97 mg/dL (65-110); Potassium 4.2 mmol/L (3.4-5.0); Sodium 137 mmol/L (137-145)
[2023-03-21] MEDS: DUTASTERIDE 0.5 MG CAPSULE PO (08:50)
[2023-03-21] MEDS: ASPIRIN 81 MG ENTERIC TABLET PO (08:50)
[2023-03-21] MEDS: levETIRAcetam 500 MG TABLET PO ×2 (08:51→20:14)
[2023-03-21] MEDS: CALCIUM CARBONATE (TUMS) 500 MG (200 MG ELEMENTAL) PO (08:51)
[2023-03-21] MEDS: LORazepam (*CRX) 0.5 MG TABLET PO ×3 (08:51→22:10)
[2023-03-21 14:00] VITALS: BP 129/44; PULSE 58; RESP 16; TEMP 36.6; O2SAT 100
--- NOTE | 2023-03-21 14:17 | PM.IMPN ---
Progress Note: A&P Assessment and Plan (1) Seizure-like activity: Code(s): R56.9 - Unspecified convulsions Status: Acute Assessment and Plan: Neurology consulted in the emergency department requested patient start Keppra 500 b.i.d. which was ordered as well as be admitted for EEG tomorrow. EEG is ordered awaiting full result. Pt admitted with seizures witnessed by his had CT head and EEG so far. I will order MRi brain and await full neuro evaluation (2) Essential hypertension: Code(s): I10 - Essential (primary) hypertension Status: Acute Assessment and Plan: Blood pressure reviewed and stable. Patient takes 0.1 mg clonidine once daily. (3) Gastroesophageal reflux disease without esophagitis: Code(s): K21.9 - Gastro-esophageal reflux disease without esophagitis Status: Acute Assessment and Plan: Stable and periodic. Patient reports taking Pepto-Bismol when he has heartburn but not on a daily basis. (4) Benign prostatic hyperplasia without lower urinary tract symptoms: Code(s): N40.0 - Benign prostatic hyperplasia without lower urinary tract symptoms Status: Acute Assessment and Plan: Stable. Continue Avodart. (5) FILOMENA (obstructive sleep apnea): Code(s): G47.33 - Obstructive sleep apnea (adult) (pediatric) Status: Acute Assessment and Plan: AutoPAP ordered while patient is admitted. Subjective Date/time seen: 03/21/23 14:17 Interval history: 83-year-old male patient past history of hypertension, BPH and FILOMENA on CPAP who presents to the hospital via EMS after generalized tonic-clonic seizure at home a with postictal period and loss of urinary continence.? Patient noted that he bit his lip during the seizure and that he was fighting with EMS during transport because he was convinced he had to get up off of the stretcher.? Patient can remember the fight with EMS. Pt describes having a seizure in his sleep states he did not wear his CPAP machine that night otherwise was just like every day. witness loss of consciousness and seizure like activity. Pt had CT head which was nl and EEG result is pending pt yet to see neurology No further seizures seen in hospital. Pt started on keppra in ED. Review of Systems Review of Systems: Seizure while sleeping All systems reviewed & are unremarkable except as noted in HPI and below Exam Narrative: GENERAL: Generally well appearing, alert and oriented Right lower lip swollen from bite NECK: The patient has no noted JVD. No adenopathy is appreciated. CHEST/LUNGS: Lungs are clear bilaterally without rhonchi, rales, or wheezes. There is no subcutaneous air appreciated. There is no tenderness to the chest wall. HEART: The patient has a regular rate and rhythm. No murmurs, rubs, or gallops are appreciated. Distal pulses are 2+. ABDOMEN: The patient?s abdomen is soft, nontender, and nondistended. Bowel sounds are positive. No peritoneal signs. EXTREMITIES: The patient has no peripheral edema. There is no focal long bone tenderness or deformity. SKIN: The patient?s skin is warm and dry, without rashes or lesions. PSYCHIATRIC: The patient has normal mental status and has an appropriate affect. NEUROLOGIC: There are no gross deficits to the cranial nerves. Patient ambulates with steady gait. Objective Data Vital Signs Vital Signs: Vital Signs - 24 hr 03/20/23 14:30 03/20/23 14:32 03/20/23 14:45 Temperature Pulse Rate 77 73 78 Respiratory Rate 15 16 16 Blood Pressure 143/67 H Pulse Oximetry Oxygen Delivery 03/20/23 14:47 03/20/23 15:00 03/20/23 15:01 Temperature Pulse Rate 78 69 71 Respiratory Rate 15 17 14 Blood Pressure 145/86 H 135/69 Pulse Oximetry Oxygen Delivery 03/20/23 15:15 03/20/23 15:16 03/20/23 15:30 Temperature Pulse Rate 70 68 66 Respiratory Rate 14 15 18 Blood Pressure 145/67 H Pulse Oximetry Oxygen Delivery
[2023-03-21 16:17] VITALS: BP 149/63; PULSE 55; O2SAT 100
[2023-03-21] MEDS: cloNIDine HCL 0.1 MG TABLET PO (16:19)
[2023-03-21 20:35] VITALS: BP 129/57; PULSE 52; RESP 16; TEMP 36.1; O2SAT 97
[2023-03-22 06:00] VITALS: BP 116/66; PULSE 51; RESP 16; TEMP 35.8; O2SAT 98
[2023-03-22 06:37] LABS: Basophils Absolute Auto 0.1 K/mm3 (0.0-0.1); Basophils Percent Auto 0.8 % (0.2-1.2); Eosinophils Absolute Auto 0.4 K/mm3 (0-0.3); Eosinophils Percent Auto 5.1 % (0-4.4); Hematocrit 47.2 % (42.0-52.0); Hemoglobin 15.1 g/dL (14.0-18.0); Immature Granulocyte Absolute 0.04 K/mm3 (0.00-0.031); Immature Granulocyte Percent A 0.5 % (0-0.5); Lymphocytes Absolute Auto 2.41 K/mm3 (0.9-3.2); Lymphocytes Percent Auto 30.2 % (18.3-44.2); Mean Corpuscular Hemoglobin 28.7 pg (26-34); Mean Corpuscular Volume 89.7 fl (80-100); Mean Platelet Volume 9.5 fl (7.4-10.4); Monocytes Absolute Auto 0.5 K/mm3 (0.1-0.6); Monocytes Percent Auto 6.3 % (2.6-8.5); Neutrophils Absolute Auto 4.6 K/mm3 (1.3-6.7); Neutrophils Percent Auto 57.1 % (45.5-73.1); Platelet Count Result 171 k/mm3 (150-375); Red Blood Count 5.26 M/mm3 (4.6-6.20); Red Cell Distribution Width 12.3 % (11.5-14.5)
[2023-03-22 06:57] LABS: Anion Gap 7 mmol/L (8-16); Blood Urea Nitrogen 16 mg/dL (9-20); Calcium 9.3 mg/dL (8.4-10.2); Carbon Dioxide 32 mmol/L (22-30); Chloride 102 mmol/L (98-107); Estimated CRCL calculation 53 ml/min; Estimated Glomerular Filt Rate > 60; Glucose 95 mg/dL (65-110); Potassium 3.9 mmol/L (3.4-5.0); Sodium 141 mmol/L (137-145)
[2023-03-22] MEDS: DUTASTERIDE 0.5 MG CAPSULE PO (08:33)
[2023-03-22] MEDS: ASPIRIN 81 MG ENTERIC TABLET PO (08:33)
[2023-03-22] MEDS: levETIRAcetam 500 MG TABLET PO (08:34)
[2023-03-22] MEDS: LORazepam (*CRX) 0.5 MG TABLET PO (08:42)
--- NOTE | 2023-03-22 10:31 | PM.IMPN ---
Progress Note: A&P Assessment and Plan (1) Seizure-like activity: Code(s): R56.9 - Unspecified convulsions Status: Acute Assessment and Plan: EEG, MRI, neuro consult Started on Keppra 500 mg twice daily (2) Essential hypertension: Code(s): I10 - Essential (primary) hypertension Status: Acute Assessment and Plan: Blood pressures reviewed 03/22 Continue home clonidine, monitor (3) Gastroesophageal reflux disease without esophagitis: Code(s): K21.9 - Gastro-esophageal reflux disease without esophagitis Status: Acute Assessment and Plan: Intermittent, Tums as needed (4) Benign prostatic hyperplasia without lower urinary tract symptoms: Code(s): N40.0 - Benign prostatic hyperplasia without lower urinary tract symptoms Status: Acute Assessment and Plan: Stable. Continue Avodart. (5) FILOMENA (obstructive sleep apnea): Code(s): G47.33 - Obstructive sleep apnea (adult) (pediatric) Status: Acute Assessment and Plan: AutoPAP ordered while patient is admitted. Plan DVT prophylaxis with SCDs GI prophylaxis not indicated Code status full code Subjective Date/time seen: 03/22/23 10:31 Interval history: 83-year-old male patient past history of hypertension, BPH and FILOMENA on CPAP who presents to the hospital via EMS after generalized tonic-clonic seizure at home a with postictal period and loss of urinary continence.? Patient noted that he bit his lip during the seizure and that he was fighting with EMS during transport because he was convinced he had to get up off of the stretcher.? Patient can remember the fight with EMS. Pt describes having a seizure in his sleep states he did not wear his CPAP machine that night otherwise was just like every day. witness loss of consciousness and seizure like activity. Pt had CT head which was nl and EEG result is pending pt yet to see neurology No further seizures seen in hospital. Pt started on keppra in ED. 03/22: No overnight events noted. No chest pain or shortness of breath. No nausea, vomiting or diarrhea. No fevers or chills. No seizure activity. Review of Systems Review of Systems: 12 point review of systems was assessed and was negative except as noted in the HPI Exam Narrative: GENERAL: Generally well appearing, alert and oriented Right lower lip swollen from bite NECK: The patient has no noted JVD. No adenopathy is appreciated. CHEST/LUNGS: Lungs are clear bilaterally without rhonchi, rales, or wheezes. There is no subcutaneous air appreciated. There is no tenderness to the chest wall. HEART: The patient has a regular rate and rhythm. No murmurs, rubs, or gallops are appreciated. Distal pulses are 2+. ABDOMEN: The patient?s abdomen is soft, nontender, and nondistended. Bowel sounds are positive. No peritoneal signs. EXTREMITIES: The patient has no peripheral edema. There is no focal long bone tenderness or deformity. SKIN: The patient?s skin is warm and dry, without rashes or lesions. PSYCHIATRIC: The patient has normal mental status and has an appropriate affect. NEUROLOGIC: There are no gross deficits to the cranial nerves. Patient ambulates with steady gait. Objective Data Vital Signs Vital Signs: Vital Signs - 24 hr 03/21/23 16:17 03/21/23 14:00 03/21/23 20:35 Temperature 97.9 F 97 F L Pulse Rate 55 L 58 L 52 L Respiratory Rate 16 16 Blood Pressure 149/63 H 129/44 L 129/57 L Pulse Oximetry 100 100 97 03/22/23 06:00 Temperature 96.4 F L Pulse Rate 51 L Respiratory Rate 16 Blood Pressure 116/66 Pulse Oximetry 98 Intake/Output Intake/Output: Intake & Output 03/19/23 03/20/23 03/21/23 03/22/23 23:59 23:59 23:59 23:59 Intake Total 950 1012 Balance 950 1012 Meds/Results Medications: Active Medications Generic Name Dose Route Start Last Admin Trade Name Freq PRN Reason Stop Dose Admin Acetaminophen 6
--- NOTE | 2023-03-22 11:19 | PM.DS ---
DS: Admitting Diagnosis Discharge Date 03/22/23 Admitting Diagnosis seizure activity DS: Discharge Diagnosis Discharge Diagnosis (1) Seizure-like activity: Code(s): R56.9 - Unspecified convulsions Status: Acute Assessment and Plan: EEG, MRI, neuro consult Started on Keppra 500 mg twice daily (2) Essential hypertension: Code(s): I10 - Essential (primary) hypertension Status: Acute Assessment and Plan: Blood pressures reviewed 03/22 Continue home clonidine, monitor (3) Gastroesophageal reflux disease without esophagitis: Code(s): K21.9 - Gastro-esophageal reflux disease without esophagitis Status: Acute Assessment and Plan: Intermittent, Tums as needed (4) Benign prostatic hyperplasia without lower urinary tract symptoms: Code(s): N40.0 - Benign prostatic hyperplasia without lower urinary tract symptoms Status: Acute Assessment and Plan: Stable. Continue Avodart. (5) FILOMENA (obstructive sleep apnea): Code(s): G47.33 - Obstructive sleep apnea (adult) (pediatric) Status: Acute Assessment and Plan: AutoPAP ordered while patient is admitted. Plan DVT prophylaxis with SCDs GI prophylaxis not indicated Code status full code DS: Summary Hospital Course Hospital Course: 83-year-old male patient past history of hypertension, BPH and FILOMENA on CPAP who presents to the hospital via EMS after generalized tonic-clonic seizure at home a with postictal period and loss of urinary continence. Neurology consulted in the emergency department requested patient start Keppra 500 b.i.d. Pt admitted with seizures witnessed by his had CT head, EEG, MRI all within normal limits. Okay for discharge and outpatient follow-up with Neurology. Please see above and med rec for details. Seizure precautions for 6 months. Time Spent with Patient Time attestation: Total time spent providing and/or coordinating discharge services: Exam Narrative: GENERAL: Generally well appearing, alert and oriented Right lower lip swollen from bite NECK: The patient has no noted JVD. No adenopathy is appreciated. CHEST/LUNGS: Lungs are clear bilaterally without rhonchi, rales, or wheezes. There is no subcutaneous air appreciated. There is no tenderness to the chest wall. HEART: The patient has a regular rate and rhythm. No murmurs, rubs, or gallops are appreciated. Distal pulses are 2+. ABDOMEN: The patient?s abdomen is soft, nontender, and nondistended. Bowel sounds are positive. No peritoneal signs. EXTREMITIES: The patient has no peripheral edema. There is no focal long bone tenderness or deformity. SKIN: The patient?s skin is warm and dry, without rashes or lesions. PSYCHIATRIC: The patient has normal mental status and has an appropriate affect. NEUROLOGIC: There are no gross deficits to the cranial nerves. Patient ambulates with steady gait. DS: Data Data Completed and Pending Labs on day of discharge: Labs from last 24 hours 03/22/23 06:03 WBC 8.0 RBC 5.26 Hgb 15.1 Hct 47.2 MCV 89.7 MCH 28.7 MCHC 32.0 RDW 12.3 Plt Count 171 MPV 9.5 Immature Gran % (Auto) 0.5 Neut % (Auto) 57.1 Lymph % (Auto) 30.2 Will % (Auto) 6.3 Eos % (Auto) 5.1 H Baso % (Auto) 0.8 Lymph # (Auto) 2.41 Will # (Auto) 0.5 Eos # (Auto) 0.4 H Baso # (Auto) 0.1 Abs Immat Gran (auto) 0.04 H Absolute Neuts (auto) 4.6 Absolute Nucleated RBC 0.0 Nucleated RBC % 0.0 Sodium 141 Potassium 3.9 Chloride 102 Carbon Dioxide 32 H Anion Gap 7 L BUN 16 Creatinine 0.90 Estim Creat Clear Calc 53 Estimated GFR > 60 Glucose 95 Calcium 9.3 Discharge Plan Discharge Attending physician on discharge: Ene Morales Consulting providers: Alfa Bowman Discharging Clinician: Ene Morales Patient Disposition: Home, Self-Care Activity: as tolerated Diet: as tolerated Patient Instructions: Antibiot
--- NOTE | 2023-03-28 10:06 | P.NEURO_ITS ---
Neurology EEG Report General Information Date of Study: 03/21/23 TEST Eeg DIAGNOSIS seizures CONDITION OF RECORDING awake and drowsy EEG NUMBER [id number] CLINICAL HISTORY Patient reports he fell asleep on the couch when he was witnessed to have a grand mal seizure. Had a similar incident about a year ago. EEG DESCRIPTION Basic resting occipital frequency consists of moderate amount of well- organized low voltage 8 to 10 hertz per 2nd alpha admixed with small amount of low-voltage 15 to 18 hertz per 2nd beta. Low-voltage beta activity seen diffusely during drowsiness admixed with waxing and waning posterior alpha rhythm. Normal agustin posterior gradient is noted . hyperventilation not done. Photic stimulation not done. Non paroxysmal. Nonfocal. Nonlateralizing. IMPRESSION Normal record but that does not rule out the possibility of seizures as the patient can have a normal EEG with history of clinical seizures for that reason clinical correlation recommended.
== END 2023-03-22 12:15 | disposition home or self-care (01) ==
LOC: ANHED 14:29 → ANH3MEDSUR 19:19
PROVIDERS: Nurse Practitioner; Nurse Practitioner Family; Admitting Provider Student in an Organized Health Care Education/Training Program; Emergency Provider Student in an Organized Health Care Education/Training Program; PCP Family Medicine; Visit Provider Student in an Organized Health Care Education/Training Program
DX: R56.9 Unspecified convulsions (principal); I10 Essential (primary) hypertension; K21.9 Gastro-esophageal reflux disease without esophagitis; N40.0 Benign prostatic hyperplasia without lower urinary tract symptoms; G47.33 Obstructive sleep apnea (adult) (pediatric); Z99.89 Dependence on other enabling machines and devices; I69.311 Memory deficit following cerebral infarction; E78.2 Mixed hyperlipidemia; D64.9 Anemia, unspecified; Z79.82 Long term (current) use of aspirin; Z79.899 Other long term (current) drug therapy; Z82.49 Family history of ischemic heart disease and other diseases of the circulatory system; Z87.891 Personal history of nicotine dependence
CPT/HCPCS: 36415; 70450; 70551; 80048; 80053; 80061; 81001; 83036; 83735; 84100; 85025; 85610; 85730; 93005; 95816; 99285; A9270; G0378